=== PATIENT | male | born 2000 | race Caucasian/White ===

== ENCOUNTER 2019-10-24 06:54 | Emergency (ER) | payer BC, SELFPAY ==
[2019-10-24 06:57] VITALS: BP 125/82; PULSE 74; RESP 22; TEMP 36.7; O2SAT 100; BMI 26.6
--- NOTE | 2019-10-24 07:02 | ED_ITS ---
Entered by Damari Beck, acting as scribe for Ankur Hernandez DO HPI - General Adult General: Chief complaint: General Medical Stated complaint: HEART RACING Time Seen by Provider: 10/24/19 07:02 Source: patient and family Mode of arrival: ambulatory Limitations: no limitations History of Present Illness: HPI narrative: 19 yo male presents with heart racing. pt states this started last night. pt states he was unsure if he was having anxiety but he could not get it to go away. pt states he has been drinking more caffeine lately. pt states it has stopped in the ED. pt was relieved in the ED. pt has had seen Dr. Haider in the past. pt denies any other symptoms at this time. MD complaint: heart racing Onset (ago): hour(s) (last night) Radiation: non-radiation Severity: mild Pain Consistency: constant Relieving factors: none Exacerbating factors: none Associated symptoms: Reports no associated symptoms; Deny chest pain, dyspnea, malaise, nausea, rash or vomiting Treatments prior to arrival: none Review of Systems Const: Denies: fever, chills, body aches, change in appetite, fatigue or malaise ENMT: Denies: throat pain, ear pain, nasal discharge or nasal congestion Card: Denies: chest pain, edema, shortness of breath on exertion or shortness of breath when lying down Resp: Denies: shortness of breath, productive cough or non-productive cough GI: Denies: abdominal pain, nausea, vomiting, vomiting blood, coffee grounds in vomit, diarrhea, constipation, bloating, blood in stool or black tarry stool : Denies: flank pain, painful urination, urinary frequency or urinary urgency Skin/Breast: Denies: rash or itching PFSH ED PFSH: Social History Smoking and tobacco status: never smoked Physical Exam Const: COMMON NORMALS: no apparent distress GENERAL APPEARANCE: cooperative and comfortable ORIENTATION/CONSCIOUSNESS: Yes awake, Yes oriented to person, Yes oriented to place and Yes oriented to time HENMT: COMMON NORMALS: normocephalic, head/scalp atraumatic, hearing grossly normal bilaterally, external ears normal, EAC's normal, TM's normal bilaterally, nasal mucous membranes and turbinates normal, moist oral mucous membranes and oropharynx normal HEAD & SCALP: normocephalic and atraumatic NOSE: nasal mucous membranes and turbinates normal EXTERNAL EAR: Yes external ears normal EXTERNAL AUDITORY CANAL: EAC's normal TYMPANIC MEMBRANE: TM's normal bilaterally Eye: COMMON NORMALS: PERRL, EOMs intact bilaterally, conjunctivae normal and no scleral icterus CONJUNCTIVA: Yes conjunctivae normal PUPIL: Yes PERRL Neck/C-Spine: COMMON NORMALS: full ROM, no lymphadenopathy, supple and no JVD Lymph: LYMPHATIC: no lymphadenopathy noted and no lymphedema noted Resp: COMMON NORMALS: normal respiratory effort, no retractions, no use of accessory muscles and clear to auscultation bilaterally AUSCULTATION: clear to auscultation bilaterally Cardio: COMMON NORMALS: no JVD, regular rate, regular rhythm and no murmurs RATE: regular rate RHYTHM: regular rhythm GI: COMMON NORMALS: soft to palpation and no hepatosplenomegaly AUSCULTATION: Yes normoactive bowel sounds PALPATION: Yes soft, No tender, No guarding and Yes no hepatosplenomegaly Extremity: COMMON NORMALS: normal to inspection, normal capillary refill, no clubbing, cyanosis or edema, no calf tenderness and no pedal edema Neuro: SENSORIUM/ORIENTATION: Yes oriented to person, Yes oriented to place and Yes oriented to time Skin: COMMON NORMALS: no rashes or lesions noted GENERAL SKIN EXAM: no rashes or lesions noted Course ED course: Patient was here he had no evidence of tachycardia. Organ to go and discharge him home on a 24-hour Holter follow-up with his fitness instructor after that is completed has recurrence of symptoms return. Vital Signs: Vital signs: Vital Signs Temperature 98.1 F 10/24/19 06:57 Pulse Rate 85 10/24/19 08:32 Respiratory Rate 20 H 10/24/19 08:32 Blood Pressure 136/73 10/24/19 08:32 Pulse Oximetry 98 10/24/19 08:32 MDM - General Adult Lab Data: Labs: Lab Results 10/24/19 10/24/19 10/24/19 Range/Units 07:18 07:18 07:32 WBC 8.1 (4.5-13.0) 10^3/ uL RBC 5.44 H (4.1-5.3) 10^6/u L Hgb 15.8 (11.7-16.6) g/dL Hct 46.2 (42.0-52.0) % MCV 84.9 (80-94) fL MCH 29.0 (28.0-34.0) pg MCHC 34.2 (30.0-36.0) g/dL RDW 11.8 L (12.1-15.1) % Plt Count 221 (130-400) 10^3/c mm MPV 9.8 (7.4-10.4) fL Neut % (Auto) 61.0 % Lymph % (Auto) 30.9 % [place] % (Auto) 6.0 % Eos % (Auto) 1.4 % Baso % (Auto) 0.5 % Neut # (Auto) 5.0 (1.8-8.0) 10^3/u L Lymph # (Auto) 2.5 (1.5-6.5) 10^3/u L [place] # (Auto) 0.5 (0.2-0.9) 10^3/u L Eos # (Auto) 0.1 (0.0-0.8) 10^3/u L Baso # (Auto) 0.0 (0.0-0.1) 10^3/u L Nucleated RBC % (a uto) 0 % Nucleated RBCs # 0.0 /100WBC Sodium 139 (136-145) mmol/L Potassium 3.8 (3.5-5.1) mmol/L Chloride 100 (98-107) mmol/L Carbon Dioxide 25 (22-29) mmol/L Anion Gap 17.8 (5-19) BUN 17 (6-20) mg/dL Creatinine 1.0 (0.7-1.2) mg/dL GFR Calculation 95.3 (90-130) mL/min Glucose 103 (65-115) mg/dL Calcium 10.5 (8.5-10.5) mg/dL Total Bilirubin 0.7 (0.15-1.2) mg/dL AST 18 (0-40) U/L ALT 23 (0-41) U/L Alkaline Phosphata se 101 (40-130) IU/L Total Protein 8.0 (6.6-8.7) g/dL Albumin 4.9 (3.5-5.2) g/dL Globulin 3.1 (1.3-4.6) g/dL Urine Opiates Scre en Negative (Negative) ng/mL Ur Barbiturates Sc reen Negative (Negative) ng/mL Ur Phencyclidine S crn Negative (Negative) ng/mL Ur Amphetamines Sc reen Negative (Negative) ng/mL U Benzodiazepines Scrn Negative (Negative) ng/mL Urine Cocaine Scre en Negative (Negative) ng/mL U Marijuana (THC) Screen Negative (Negative) ng/mL Imaging Data^: CXR: Radiologist's impression: [address] [address] XRay Report Signed Patient: Nawaf Blake #: [id number] : 2000Acct#:[id number] Age/Sex: Date: 10/24/19 Loc: ERRoom/Bed: Attending Dr: Ordering Provider/Ordering MD: Ankur Hernandez DO Date of Service: 10/24/19 Procedure(s): XR chest 1V portable [id number] Accession Number(s): [id number] Report Number: [id number] WS: [id number] PORTABLE CHEST HISTORY: dyspnea/cough COMPARISON: 07/27/2016 Lungs are clear and well expanded. No pleural effusion or pneumothorax. Cardiac size: Normal. Mediastinum/Aorta: Normal mediastinum. No osseous abnormality seen. XR/XR chest 1V portable [id number] IMPRESSION: Unremarkable portable chest. Dictated By:Silva Enamorado DO Signed By:Silva Enamorado DOSigned Date/Time:10/24/19 0810 Discharge Plan Discharge Patient Disposition: Home, Self-Care Clinical Impression: Heart palpitations Condition: Stable Prescriptions: No Action No Known Home Medications RF: 0 Discharge Orders: Discharge Order (Routine); Ordered 10/24/19 Ordered By: Ankur Hernandez Discharge Diet: Usual diet Discharge Activity: Increase activity as tolerated Activity Restrictions/Additional Instructions: This management will call to set up a 24-hour Holter follow-up with Dr. Hugo after the Holter monitor. Discharge Date/Time: 10/24/19 08:33 Coding Level of Care Code ED Assembler [employer] for Chg Fwd Exam Problem Focused The documentation recorded by the Kiran blevins Bridget Annette, accurately reflects the service I personally performed and the decisions made by me, Ankur Hernandez, DO
--- NOTE | 2019-10-24 07:09 | XR_ITS ---
WS: [id number] PORTABLE CHEST HISTORY: dyspnea/cough COMPARISON: 07/27/2016 Lungs are clear and well expanded. No pleural effusion or pneumothorax. Cardiac size: Normal. Mediastinum/Aorta: Normal mediastinum. No osseous abnormality seen. XR/XR chest 1V portable [id number] IMPRESSION: Unremarkable portable chest.
--- NOTE | 2019-10-24 07:09 | ECG_ITS ---
Measurements Intervals [place] Rate: 78 P: 9 TX: 128 QRS: 20 QRSD: 92 T: 30 QT: 365 QTc: 417 SINUS RHYTHM Compared to ECG 07/30/2016 08:08:19 Sinus bradycardia no longer present Early repolarization no longer present Electronically Signed On 10-24-2019 20:47:07 GRAPHIC DESIGN ASSISTANT by Mirta Haider M.D. [email or web address]
[2019-10-24 07:22] LABS: Basophils % 0.5 %; Eosinophils # 0.1 10^3/uL (0.0-0.8); Eosinophils % 1.4 %; Hematocrit 46.2 % (42.0-52.0); Hemoglobin 15.8 g/dL (11.7-16.6); Lymphocytes # 2.5 10^3/uL (1.5-6.5); Lymphocytes % 30.9 %; Mean Corpuscular HGB Conc 34.2 g/dL (30.0-36.0); Mean Corpuscular Volume 84.9 fL (80-94); Mean Platelet Volume 9.8 fL (7.4-10.4); Monocytes # 0.5 10^3/uL (0.2-0.9); Nucleated Red Blood Cells % 0 %; Platelet Count 221 10^3/cmm (130-400); Red Blood Count 5.44 10^6/uL (4.1-5.3); Red Cell Distribution Width 11.8 % (12.1-15.1); White Blood Count 8.1 10^3/uL (4.5-13.0)
--- NOTE | 2019-10-24 07:31 | PC.NURSE ---
Patient resting in bed with parents present. Patient states symptom began early this morning. Mom states patient has a history of pericarditis. Denies any recent illness. Denies any CP or SOB.
[2019-10-24 07:36] LABS: Alanine Aminotransferase 23 U/L (0-41); Albumin Level 4.9 g/dL (3.5-5.2); Alkaline Phosphatase 101 IU/L (40-130); Anion Gap 17.8 (5-19); Aspartate Amino Transferase 18 U/L (0-40); Blood Urea Nitrogen 17 mg/dL (6-20); Calcium 10.5 mg/dL (8.5-10.5); Carbon Dioxide 25 mmol/L (22-29); Chloride 100 mmol/L (98-107); Globulin 3.1 g/dL (1.3-4.6); Glomerular Filtration Rate 95.3 mL/min (90-130); Glucose 103 mg/dL (65-115); Potassium 3.8 mmol/L (3.5-5.1); Sodium 139 mmol/L (136-145); Total Bilirubin 0.7 mg/dL (0.15-1.2)
[2019-10-24 07:45] VITALS: BP 128/77; PULSE 73; RESP 18; O2SAT 98
[2019-10-24 08:03] LABS: Amphetamines Screen Urine Negative (Negative); Barbiturates Screen Urine Negative (Negative); Benzodiazepines Screen Urine Negative (Negative); Cocaine Screen Urine Negative (Negative); Opiate Screen Urine Negative (Negative); PCP Screen Urine Negative (Negative); THC Screen Urine Negative (Negative)
[2019-10-24 08:32] VITALS: BP 136/73; PULSE 85; RESP 20; O2SAT 98
--- NOTE | 2019-10-24 13:21 | DCPLANNER ---
Raheem was asked to schedule a follow up appointment for patient for 24 hour halter monitor. fleet manager/dispatch faxed order to [facility], an appointment for the halter monitor is scheduled for Sunday, October 27, 2019 at 1:00. A follow up appointment is scheduled with Dr. Rodrigues on Tuesday, November 19, 2019 at 2:[address] Rodrigues. Clinic will call patient with appointment information.
--- NOTE | 2019-11-11 14:45 | DCPLANNER ---
Patient did attend appointment scheduled for 10.27.19 with [facility].
--- NOTE | 2019-11-20 10:15 | DCPLANNER ---
Patient did not attend appointment scheduled with [facility].
== END 2019-10-24 08:33 | disposition home or self-care (01) ==
LOC: ER 08:19
PROVIDERS: Emergency Provider Family Medicine
DX: R00.2 Palpitations (principal)
CPT/HCPCS: 36415; 71045; 80053; 80307; 85025; 93005; 99282; 99283; A9270

== ENCOUNTER 2021-12-05 15:02 | Emergency (ER) | payer BC, SELFPAY ==
[2021-12-05 15:59] VITALS: BP 140/90; PULSE 81; RESP 16; TEMP 36.8; O2SAT 99; BMI 26.6
--- NOTE | 2021-12-05 16:35 | USR_ITS ---
PROCEDURE INFORMATION: Exam: US Scrotum Exam date and time: 12/05/2021 4:45 PM Age: 21 years old Clinical indication: Scrotum pain; Additional info: Testicular pain TECHNIQUE: Imaging protocol: Real-time ultrasound of the scrotum and contents with color Doppler and image documentation. COMPARISON: No relevant prior studies available. FINDINGS: Right testicle: Normal. No mass. No torsion. Normal vascular flow. Left testicle: Normal. No mass. No torsion. Normal vascular flow. Epididymides: Left epididymis appears prominent and perhaps mildly hypervascular perhaps reflecting an epididymitis in the appropriate clinical setting. Scrotum: Small left varicocele suspected. US/US scrotum [id number] IMPRESSION: 1. Left epididymis appears prominent and perhaps mildly hypervascular perhaps reflecting an epididymitis in the appropriate clinical setting. 2. Small left varicocele suspected.
--- NOTE | 2021-12-05 19:16 | ED_ITS ---
HPI - General Adult General: Chief complaint: General Medical Stated complaint: Testicular Pain Time Seen by Provider: 12/05/21 19:16 History of Present Illness: 21-year-old male patient comes in today with complaints of left testicular discomfort starting about 2:00 this morning. Mj cox reports some swelling and tenderness to the testicle. Patient appears nontoxic. Patient appears in mild to no pain. MD complaint: Left testicular pain Onset (ago): hour(s) Location: genitals Radiation: non-radiation Associated symptoms: Deny chest pain, dyspnea or vomiting Review of Systems General: Reports: 10 or more systems reviewed and unremarkable except in HPI and below Const: Denies: fever(s) Card: Denies: chest pain Resp: Denies: dyspnea GI: Denies: vomiting : Reports: testicular pain PFS ED PFSH: Social History Smoking and tobacco status: never smoked Physical Exam Const: COMMON NORMALS: alert HENMT: COMMON NORMALS: atraumatic HEAD & SCALP: atraumatic Neck/C-Spine: COMMON NORMALS: full ROM Resp: COMMON NORMALS: normal respiratory effort Cardio: COMMON NORMALS: regular rate and regular rhythm RATE: regular rate RHYTHM: regular rhythm Extremity: COMMON NORMALS: no clubbing, cyanosis or edema Neuro: SENSORIUM/ORIENTATION: Yes alert Psych: COMMON NORMALS: cooperative Course Vital Signs: Vital signs: Vital Signs Temperature 98.3 F 12/05/21 15:59 Pulse Rate 81 12/05/21 15:59 Respiratory Rate 16 12/05/21 15:59 Blood Pressure 140/90 12/05/21 15:59 Pulse Oximetry 99 12/05/21 15:59 [facility] - General Adult Medical Decision Making 22-year-old male patient comes in today with complaints of left testicular pain. On exam patient is alert and oriented. Patient appears nontoxic. Patient was all extremities well. Differential diagnosis includes not limited to epididymitis, testicular torsion, orchitis. Ultrasound of the scrotum noted epididymitis. Urine was collected for gonorrhea chlamydia and urinalysis. Patient will be treated for infection with 500 mg of Rocephin IM, and the 100 mg of doxycycline twice a day for 7 days. Encourage plenty of fluids and follow-up with primary care in 3 days for recheck. Patient reported understanding agreed to plan. Lab Data Radiology Impressions Scrotum Ultrasound 12/05/21 16:35 IMPRESSION: 1. Left epididymis appears prominent and perhaps mildly hypervascular perhaps reflecting an epididymitis in the appropriate clinical setting. 2. Small left varicocele suspected. Discharge Plan Discharge Patient Disposition: Home Clinical Impression: Epididymitis Condition: Stable Prescriptions: New doxycycline monohydrate 100 mg capsule 100 mg PO Q12H 7 Days Qty: 14 0RF Discharge Orders: Discharge ED (Routine); Ordered 12/05/21 Ordered By: Elie Drake Discharge Diet: Usual diet Discharge Activity: Increase activity as tolerated Patient Instructions: Epididymitis (ED) Activity Restrictions/Additional Instructions: Drink plenty of water with medications. Tylenol and ibuprofen for pain. Follow-up with primary care in 3 days. Return to ER for new concerns. Coding Level of Care Code ED Administrative Assistant Data Entry for Disha Claudio
[2021-12-05] MEDS: doxycycline 100 mg Tablet PO (19:27)
[2021-12-05 19:37] VITALS: BP 117/74; PULSE 68; RESP 18; TEMP 36.9; O2SAT 100
[2021-12-05 19:38] LABS: Add Urine Microscopic? NO; Charge for UA Resulting for Rev
[2021-12-05 19:44] LABS: Bilirubin Urine Neg (Negative); Blood Urine Neg (Negative); Glucose Urine UA Norm (Normal); Ketones Urine Negative (Negative); Leukocyte Esterase Urine Negative (Negative); Nitrate Urine Negative (Negative); Protein Urine Neg (Negative); Specific Gravity, Urine 1.015 (1.005-1.030); Urine Appearance Clear (CLEAR); Urine Color Yellow (Yellow); Urobilinogen Urine Norm (Negative); pH Urine 5 (5-7)
[2021-12-05 20:01] VITALS: BP 124/74; PULSE 72; RESP 18; TEMP 36.9; O2SAT 100
== END 2021-12-05 20:01 | disposition home or self-care (01) ==
PROVIDERS: Emergency Provider Nurse Practitioner Family
DX: N45.1 Epididymitis (principal)
CPT/HCPCS: 76870; 81003; 87491; 87591; 96372; 99283; J0696